=== PATIENT | male | born 1970 | race African-American/Black ===

== ENCOUNTER 2019-07-01 10:49 | Emergency (ER) | payer MEDICAID ==
[~2019-07-01] VITALS: Ht 167.6 cm; Wt 104.0 kg
[2019-07-01 11:23] VITALS: BP 158/93
== END 2019-07-01 15:00 | disposition left against medical advice (07) ==
LOC: ER 10:49
DX: Z53.21 Procedure and treatment not carried out due to patient leaving prior to being seen by health care provider (principal); E03.9 Hypothyroidism, unspecified